=== PATIENT | male | born 1970 | race Caucasian/White ===

== ENCOUNTER 2020-05-14 08:16 | Emergency (ER) | payer OTHER ==
[~2020-05-14] VITALS: Ht 182.9 cm; Wt 118.4 kg
--- NOTE | ~2020-05-14 | EMS ---
[facility] [address] [place] [address] EMS Patient Care Report Name: ARCELIA DE DIOS Room: PRE M.R.#: [id number] Admission: Attend Phys: Discharge: Date of : 68 Report #: [id number] THIS REPORT FOR: //name// Report Transmitted: 05/14/2020 08:01 EMS Care Summary [facility] [place] Incident [id number] @ 05/14/2020 07:35 Incident Location [address] [place] [address] and [place] [id number] Patient ARCELIA DE DIOS Male, 49 Years 1970 Patient Address [address] [place], [place] [id number] Patient History Edema, Patient Allergies No known allergies, Chief Complaint Ingestion Disposition Transported No Lights/[place] Dispatch Reason Chest Pain (Non-Traumatic) Transported To [facility] Narrative Dispatched to address noted for chest pain. [facility] en route at time noted. Arrived and found patient walking towards the ambulance. Patient was diaphertic and appeared anxious. Stating that he is having a heart attack. Patient was moved into the ambulance and buckled into the stretcher. Patient stated that he took meth about an hour ago and now thinks he is having a heart attack. patient was very anxious and having obvious visual hallucinations. Patient denied SI/HI [facility] [address] [place] [address] EMS Patient Care Report Name: ARCELIA DE DIOS Room: [facility]#: [id number] Admission: Attend Phys: Discharge: Date of : 68 Report #: [id number] but was unable to answer some GCS questions. patient allowed blood pressure, SpO2 and 12 lead with verbal couching and then did not want anything else done for the remainder of his care. [facility] was on high volume so [facility] was chosen. 12 lead revealed no elevation. While en route, patient continued to shift around and attempt to take his seat belt off. Patient did not have the ability to focus on instructions or commands. Patient did not have any major status changes and second set of vitals where unable to be obtained. Radio report given at time noted. Arrived and took patient to room 9. Patient was moved to bed and he had to be verbally couched to sit on the bed. RN took verbal report and signed for patient and patient care. END REPORT EMT-P Cuco William Initial Vitals @07:45SpO2: 98, @07:47SpO2: 96, @07:43 @07:44 @07:47P: 109,R: 14,BP: 171/97, @07:47GCS: 14, @07:40 Assessments @07:40MENTAL:SKIN:HEENT:LUNG SOUNDS:ABDOMEN:PELVIS//GI:EXTREMITIES:PULSE:NEURO: Impression Generalized anxiety disorder Procedures @07:4312-Lead ECGResponse: UnchangedSucceeded@07:4412-Lead ECGResponse: UnchangedSucceeded Timeline 07:35,Call Received 07:35,Dispatch Notified 07:35,Psap Call 07:35,Dispatched 07:36,En Route 07:38,On Scene 07:40,At Patient 07:40,BP: / M,PULSE: ,RR: R,SPO2: Ox,ETCO2: ,BG: ,PAIN: ,GCS: , 07:43,12-Lead ECG,Response: UnchangedSucceeded, 07:43,BP: / M,PULSE: ,RR: R,SPO2: Ox,ETCO2: ,BG: ,PAIN: ,GCS: , 07:44,12-Lead ECG,Response: UnchangedSucceeded, 07:44,BP: / M,PULSE: ,RR: R,SPO2: Ox,ETCO2: ,BG: ,PAIN: ,GCS: , 07:45,BP: / M,PULSE: ,RR: R,SPO2: 98 Ox,ETCO2: ,BG: ,PAIN: ,GCS: , [place] [address] EMS Patient Care Report Name: ARCELIA DE DIOS Room: [facility]#: [id number] Admission: Attend Phys: Discharge: Date of : 68 Report #: [id number] 07:47,BP: / M,PULSE: ,RR: R,SPO2: 96 Ox,ETCO2: ,BG: ,PAIN: ,GCS: , 07:47,BP: 171/97 M,PULSE: 109,RR: 14 R,SPO2: Ox,ETCO2: ,BG: ,PAIN: ,GCS: , 07:47,BP: / M,PULSE: ,RR: R,SPO2: Ox,ETCO2: ,BG: ,PAIN: ,GCS: 14, 07:48,Depart Scene 08:13,At Destination 08:27,Call Closed Disclaimer [email or web address] Copyright 2020 [employer] This EMS Care Summary contains data elements from the applicable legal record (which may be displayed differently). It is designed to provide pertinent information for the following purposes: continuity of care, clinical quality, and state data reporting. The complete legal record is available to ED staff and administrators of the receiving hospital in [employer]'s Patient Tracker. All data is provided "as is."
[2020-05-14 08:37] LABS: ABSOLUTE BASOPHILS 0.1 thou/uL (0.0-0.2); ABSOLUTE MONOCYTES 0.6 thou/uL (0.0-1.2); ABSOLUTE NEUTROPHILS 5.3 thou/uL (1.6-8.1); EOSINOPHILS 0.4 %; HEMATOCRIT 42.4 % (42.0-52.0); HEMOGLOBIN 15.1 gm/dL (14.0-18.0); LYMPHOCYTES 14.6 %; MCH 31.2 pg (26.0-34.0); MCHC 35.5 g/dL (28.0-37.0); MONOCYTES 8.2 %; MPV 7.3 fl. (7.2-11.1); NUCLEATED RBCS 0 /100WBC; PLATELET COUNT* 294 thou/uL (150-400); POLYS 75.8 %; RBC 4.82 mil/uL (4.50-6.00); RDW-CV 12.7 % (10.5-14.5)
[2020-05-14 08:49] LABS: CALCIUM 8.6 mg/dL (8.5-10.1); CREATININE 1.4 mg/dL (0.6-1.3); POTASSIUM 3.4 mmol/L (3.5-5.1)
[2020-05-14 08:59] LABS: ALBUMIN 4.2 g/dL (3.4-5.0); MAGNESIUM 1.9 mg/dL (1.8-2.4); TOTAL BILIRUBIN 0.4 mg/dL (<0.1-1.0); TOTAL PROTEIN 7.7 g/dL (6.4-8.2)
--- NOTE | 2020-05-14 16:55 | EKG ---
[place] [address] ELECTROCARDIOGRAM REPORT Name: ARCELIA DE DIOS Room: [facility]#: [id number] Admission: 05/14/20 Attend Phys: Discharge: Date of : 68 Date of Service: 05/14/20827 Report #: [id number] THIS REPORT FOR: //name// [facility] ED Test Date: 2020-05-14 Test Time: 08:28:28 Pat Name: ARCELIA DE DIOS Department: Room: Gender: Peg Driver: [facility] : 1970 Requested By: Teo Magallon Order Number: [id number] MD: Pavan Whitley Measurements Intervals [place] Rate: 107 P: 46 [place]: 160 QRS: 56 QRSD: 89 T: 29 QT: 313 QTc: 418 Interpretive Statements Sinus tachycardia No previous ECG available for comparison Electronically Signed On 05-14-2020 16:54:56 CDT by Pavan Whitley [email or web address] <ELECTRONICALLY SIGNED> By: Pavan Whitley MD, [facility] 05/14/20 1654 7 0828 Pavan Whitley MD, FACC /EPI
[2020-05-14 19:57] VITALS: BP 191/78
== END 2020-05-14 19:57 | disposition home or self-care (01) ==
LOC: M.ERS 08:16
PROVIDERS: Emergency Medicine Emergency Medical Services
DX: F15.10 Other stimulant abuse, uncomplicated (principal); R07.89 Other chest pain; R41.82 Altered mental status, unspecified